=== PATIENT | female | born 1960 | race Caucasian/White ===

== ENCOUNTER → 2018-10-23 | Outpatient (CLI) | payer BC ==
--- NOTE | 2018-10-23 10:13 | CT ---
EXAMINATION TYPE: CT soft tissue neck w con DATE OF EXAM: 10/23/2018 HISTORY: enlarged saliva gland under tongue COMPARISON: NONE CT DLP: 571 mGycm. Automated Exposure Control for Dose Reduction was Utilized. TECHNIQUE: CT scan of the neck is performed with IV Contrast, patient injected with 100 mL of Isovue 300, axial images are obtained, coronal and sagittal reformatted images are reviewed. FINDINGS: Airway: The airway appears patent. The vallecula and piriform sinuses are seen with probable very tra ce secretions in the vallecula. True and false focal cords are unremarkable. Within the left tonsilla r pillar there is a small 3 mm tonsillith. Parotid/submandibular glands: The parotid and submandibular glands appear symmetric without surroundi ng inflammatory fat stranding or focal appreciable mass. No calculi are seen within the parotid or sosa bmandibular ducts or glands. No gross evidence of sublingual abnormality however the tongue approxima steve the floor of the mouth making evaluation difficult. Carotid/Vascular Structures: There is a conventional three-vessel branch pattern of the aortic arch. The common carotid arteries, carotid bulbs, and visualized portions of the internal carotid arteries are grossly patent. The vertebral arteries are also grossly patent. 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 The [place] of [place] is not entirely visualized on this examination. Osseous Structures: Available moderate degenerative changes of the cervical spine. Thin osseous septu m of the left maxillary sinus and mucosal retention cyst of the anterior medial maxillary sinus measu res 8 mm. Remaining paranasal sinuses and mastoid air cells are well aerated. Cervical spine vertebra l bodies maintain alignment. Posterior disc osteophyte complexes are seen at C5-C6 and C6-C7. Other: The thyroid gland is very mildly heterogenous with subcentimeter hypoattenuated nodules. IMPRESSION: 1. No abnormality within the parotid or submandibular glands. No gross of lingual abnormality however the sublingual space is inadequately defined on CT and correlation with is recommended given this pa tient's complaint. 2. No pathologic adenopathy within the neck.
== END ==
LOC: RADCTMAIN 08:28
PROVIDERS: ATTEND Otolaryngology
DX: R22.1 Localized swelling, mass and lump, neck (principal); K11.6 Mucocele of salivary gland
CPT/HCPCS: 70491; Q9967

== ENCOUNTER → 2020-03-10 | Outpatient (CLI) | payer BC ==
--- NOTE | 2020-03-10 14:01 | MM ---
Reason for exam: screening (asymptomatic). Last mammogram was performed 4 years and 6 months ago. History: Patient is postmenopausal. Physical Findings: A clinical breast exam by your physician is recommended on an annual basis and results should be correlated with mammographic findings. MG Screening Mammo w CAD Bilateral CC and MLO view(s) were taken. Prior study comparison: September 09, 2015, bilateral MG screening mammo w CAD. The breast tissue is heterogeneously dense. This may lower the sensitivity of mammography. There are benign appearing round calcifications bilaterally. There is no discrete abnormality. ASSESSMENT: Benign, BI-RAD 2 RECOMMENDATION: Routine screening mammogram of both breasts in 1 year.
== END | disposition home or self-care (01) ==
LOC: RADMAMWWP 08:30
PROVIDERS: ATTEND Family Medicine
DX: Z12.31 Encounter for screening mammogram for malignant neoplasm of breast (principal)
CPT/HCPCS: 77067

== ENCOUNTER → 2023-09-26 | Outpatient (CLI) | payer BC ==
--- NOTE | 2023-09-26 16:12 | BD ---
EXAMINATION TYPE: Axial Bone Density DATE OF EXAM: 09/26/2023 CLINICAL HISTORY: 63 years old Female. ICD-10 CODE: Z78.0 ASYMP CAL STATE Height: 64.25" Weight: 156.3lbs FRAX RISK QUESTIONS: Alcohol (3 or more units per day): No Family History (Parent hip fracture): No Glucocorticoids (More than 3mos): No (Ex: prednisone, prednisolone, methylprednisolone, dexamethasone, and hydrocortisone). History of Fracture in Adulthood: No Secondary Osteoporosis: 1. Type 1 Diabetes: No 2. Hyperthyroidism: No 3. Menopause before 45: No 4. Malnutrition: No 5. Chronic liver disease: No Rheumatoid Arthritis: No Current Tobacco Use: No RISK FACTORS HISTORY OF: Hip Fracture (Right/Left): No Spine Fracture: No History of Wrist Fracture: No Surgery to Spine/Hip(right/left)/Wrist (right/left): No MEDICATIONS: Thyroid Medications: No Osteoporosis Medications: No EXAM MEASUREMENTS: Bone mineral densitometry was performed using the Nala System. Bone mineral density as measured about the Lumbar spine is: ----- L1-L4(G/cm2): 1192 T Score Values are as follows: ----- L1: -0.3 ----- L2: -0.3 ----- L3: 0.0 ----- L4: 0.8 ----- L1-L4: 0.1 Z Score Values are as follows: ----- L1: 1.0 ----- L2: 1.0 ----- L3: 1.3 ----- L4: 2.1 ----- L1-L4: 1.4 Baseline @[facility] Bone mineral density about the R hip (g/cm2): 1.099 Bone mineral density about the L hip (g/cm2): 1.088 T Score values are as follows: -----R Neck: 0.1 -----L Neck: -0.3 -----R Total: 0.7 -----L Total: 0.6 Z Score values are as follows: -----R Neck: 1.4 -----L Neck: 1.0 -----R Total: 1.7 -----L Total: 1.6 Baseline @[facility] FRAX%s: The graph provided illustrates a 6.9% chance for a major osteoporotic fx and a 0.3% chance fo r the hips probability for fx in 10 years time. IMPRESSION: Normal (Values between +1 and -1 indicate normal bone mass). Consider repeating this study in 5 year s or sooner if there is some new clinical indication. NOTE: T-SCORE=SD OF THE YOUNG ADULT MEAN.
--- NOTE | 2023-09-27 19:25 | MM ---
Reason for Exam: Screening (asymptomatic). Last mammogram was performed 3 year(s) and 7 month(s) ago. Patient History: Menarche at age 12. First Full-Term at age 27. Postmenopausal. Risk Values: Margoth 5 year model risk: 1.8%. NCI Lifetime model risk: 7.2%. Prior Study Comparison: 09/11/2008 Bilateral Diagnostic Mammogram, [facility]. 09/09/2015 Bilateral Screening Mammogram, [facility]. 03/10/2020 Bilateral Screening Mammogram, [facility]. Tissue Density: The breasts are heterogeneously dense, which may obscure small masses. Findings: Analyzed By CAD. Grouped punctate calcifications on the left are unchanged. There is no suspicious group of microcalcifications or new suspicious mass in either breast. Overall Assessment: Benign, BI-RAD 2 Management: Screening Mammogram of both breasts in 1 year. . Patient should continue monthly self-breast exams. A clinical breast exam by your physician is recommended on an annual basis. This exam should not preclude additional follow-up of suspicious palpable abnormalities. Note on Margoth scores and lifetime risk: 1. A Margoth score greater than 3% is considered moderate risk. If this is the case, consider specialist referral to assess eligibility for a risk reducing agent. 2. If overall lifetime risk for the development of breast cancer is 20% or higher, the patient may qualify for future screening with alternating mammogram and breast MRI. Electronically signed and approved by: Casey Lowry M.D. Radiologist
== END | disposition home or self-care (01) ==
LOC: RADMAMWWP 07:53
PROVIDERS: ATTEND Family Medicine
DX: Z12.31 Encounter for screening mammogram for malignant neoplasm of breast (principal); Z78.0 Asymptomatic menopausal state
CPT/HCPCS: 77063; 77067; 77080